=== PATIENT | female | born 1990 | race Caucasian/White ===

== ENCOUNTER → 2016-06-09 | Outpatient (REF) | payer OTHER ==
[~2016-06-09] MED LIST: ACET65TA PO; CELE20TA PO; HYDR-3363 PO; IBUP800T; THERGRAN; TRAZ50TA
[2016-06-09 18:52] LABS: FREE T4 0.95 NG/DL (0.76-1.46)
== END ==
LOC: M SFHCPLAZ 15:52
PROVIDERS: ATTEND Nurse Practitioner Family
DX: E03.9 Hypothyroidism, unspecified (principal); E55.9 Vitamin D deficiency, unspecified

== ENCOUNTER → 2017-03-04 | Outpatient (REF) | payer OTHER ==
[2017-03-04 16:32] LABS: ALBUMIN 3.7 GM/DL (3.2-5.2); ALBUMIN/GLOBULIN RATIO 1.09 (1.00-1.93); ALKALINE PHOSPHATASE 69 U/L (45-117); ALT/SGPT 26 U/L (12-78); ANION GAP 6 MEQ/L (8-16); AST/SGOT 14 U/L (15-37); BILIRUBIN,TOTAL 0.2 MG/DL (0.2-1.0); BLOOD UREA NITROGEN 11 MG/DL (7-18); CALCIUM LEVEL 9.1 MG/DL (8.5-10.1); CARBON DIOXIDE LEVEL 28 MEQ/L (21-32); CHLORIDE LEVEL 104 MEQ/L (98-107); CREATININE FOR GFR 0.71 MG/DL (0.55-1.02); FREE T4 0.93 NG/DL (0.76-1.46); GLOMERULAR FILTRATION RATE > 60.0 (>60); GLUCOSE, FASTING 85 MG/DL (70-105); SODIUM LEVEL 138 MEQ/L (136-145); TOTAL PROTEIN 7.1 GM/DL (6.4-8.2)
== END ==
LOC: M SFHCPLAZ 13:25
PROVIDERS: ATTEND Nurse Practitioner Family
DX: K21.9 Gastro-esophageal reflux disease without esophagitis (principal); E03.9 Hypothyroidism, unspecified; E55.9 Vitamin D deficiency, unspecified

== ENCOUNTER → 2017-09-16 | Outpatient (REF) | payer OTHER ==
[2017-09-16 13:59] LABS: TOTAL 25(OH) VITAMIN D 33.8 NG/ML (30.0-100.0)
[2017-09-16 14:17] LABS: FREE T4 0.99 NG/DL (0.76-1.46)
== END ==
LOC: M SFHCPLAZ 11:05
DX: E03.9 Hypothyroidism, unspecified (principal); E55.9 Vitamin D deficiency, unspecified

== ENCOUNTER → 2017-09-16 | Outpatient (REF) | payer OTHER ==
[2017-09-18 10:12] LABS: LAMOTRIGINE (LAMICTAL) 8.5 ug/mL (2.0-20.0)
== END ==
LOC: M LAB REF 13:22
DX: Z51.81 Encounter for therapeutic drug level monitoring (principal); Z79.891 Long term (current) use of opiate analgesic

== ENCOUNTER 2018-03-07 18:13 | Emergency (ER) | payer OTHER ==
[2018-03-07] MEDS: diazePAM 5 MG TAB PO (21:30)
[2018-03-07] MEDS: NAPROXEN 250 MG TAB PO (21:30)
== END 2018-03-07 21:47 | disposition home or self-care (01) ==
LOC: M ED 18:13
DX: M54.5 Low back pain (principal); F41.9 Anxiety disorder, unspecified; F33.9 Major depressive disorder, recurrent, unspecified; Z79.899 Other long term (current) drug therapy; F17.210 Nicotine dependence, cigarettes, uncomplicated
CPT/HCPCS: 99283

== ENCOUNTER → 2020-07-02 | Outpatient (REF) | payer OTHER ==
[~2020-07-02] MED LIST changes: +CLON0.5T2 PO; +LAMO200T3 PO; +NAPR-837 PO; +PRAZ1CAP PO; +VALI5TAB PO; +VITA50005
== END ==
LOC: M LAB REF 16:15
PROVIDERS: ATTEND Podiatrist Foot & Ankle Surgery
DX: M85.671 Other cyst of bone, right ankle and foot (principal)

== ENCOUNTER → 2022-06-18 | Outpatient (REF) | payer OTHER ==
[2022-06-18 23:10] LABS: GC DNA AMPLIFICATION NEGATIVE (NEGATIVE)
== END ==
LOC: M LAB REF 21:20
PROVIDERS: ATTEND Physician Assistant
DX: Z11.3 Encounter for screening for infections with a predominantly sexual mode of transmission (principal)

== ENCOUNTER 2023-03-07 05:40 | Emergency (ER) | payer OTHER, SELFPAY ==
[~2023-03-07] VITALS: Ht 175.3 cm; Wt 79.5 kg
[2023-03-07 06:26] LABS: BASO % 0.2 % (0.0-1.0); EOS % 0.1 % (0.0-3.0); HEMATOCRIT 36.3 % (36.0-47.0); HEMOGLOBIN 10.7 g/dl (12.0-15.5); LYMPH # 1.4 10^3/uL (1.5-5.0); LYMPH % 14.4 % (24.0-44.0); MEAN CORPUSCULAR HGB CONC 29.5 g/dl (32.0-36.5); MEAN CORPUSCULAR VOLUME 71.2 fl (80.0-96.0); MONO # 0.4 10^3/uL (0.0-0.8); MONO % 3.8 % (2.0-8.0); NEUTROPHILS # 8.1 10^3/uL (1.5-8.5); NEUTROPHILS % 81.2 % (36.0-66.0); PLATELET COUNT, AUTOMATED 456 10^3/uL (150-450)
[2023-03-07 06:53] LABS: LIPASE 37 U/L (12-53)
[2023-03-07 06:55] LABS: ALBUMIN 3.9 G/DL (3.2-5.2); ALKALINE PHOSPHATASE 58 U/L (46-116); ALT/SGPT 17 U/L (7.0-40); AST/SGOT 17 U/L (<34); BILIRUBIN,DIRECT 0.2 MG/DL (<0.4); BILIRUBIN,TOTAL 0.5 MG/DL (0.3-1.2); BLOOD UREA NITROGEN 11 MG/DL (9-23); CALCIUM LEVEL 9.2 MG/DL (8.5-10.1); CARBON DIOXIDE LEVEL 27 MMOL/L (20-31); CHLORIDE LEVEL 104 MMOL/L (98-107); CREATININE FOR GFR 0.49 MG/DL (0.55-1.30); GLOMERULAR FILTRATION RATE > 60.0 (>60); GLUCOSE, FASTING 99 MG/DL (60-100); POTASSIUM SERUM 4.1 MMOL/L (3.5-5.1); SODIUM LEVEL 139 MMOL/L (136-145); TOTAL PROTEIN 7.8 G/DL (5.7-8.2)
[2023-03-07] MEDS ORDERED: NS 1,000 ML IV ONE (08:00)
[2023-03-07] MEDS ORDERED: ONDANSETRON 4MG 2ML VIAL IV ONE (08:00)
[2023-03-07] MEDS ORDERED: ISOVUE-370 76% 100ML VIAL As Ordered ONE (08:17)
[2023-03-07 10:10] LABS: BARBITURATES URINE NEGATIVE (NEGATIVE); CANNABINOIDS URINE NEGATIVE (NEGATIVE); COCAINE METABOLITE URINE NEGATIVE (NEGATIVE); METHADONE URINE NEGATIVE (NEGATIVE); OPIATES URINE NEGATIVE (NEGATIVE); PHENCYCLIDINE URINE NEGATIVE (NEGATIVE)
[2023-03-07 10:13] LABS: AMPHETAMINES LEVEL URINE POSITIVE (NEGATIVE); BENZODIAZEPINES URINE POSITIVE (NEGATIVE)
[2023-03-07 11:21] VITALS: BP 167/79; TEMP 98.6; O2SAT 99
[2023-03-07] MEDS ORDERED: GABA-1171 PO (11:35)
[2023-03-07] MEDS ORDERED: ONDA4TAB6 PO (11:35)
== END 2023-03-07 11:57 | disposition home or self-care (01) ==
LOC: M ED 05:40
DX: R11.2 Nausea with vomiting, unspecified (principal); F19.230 Other psychoactive substance dependence with withdrawal, uncomplicated; R00.1 Bradycardia, unspecified; F17.200 Nicotine dependence, unspecified, uncomplicated; Z79.83 Long term (current) use of bisphosphonates; Z79.891 Long term (current) use of opiate analgesic
CPT/HCPCS: 74177; 80048; 80076; 80307; 83690; 84702; 85025; 87486; 87581; 87633; 87798; 93005; 96361; 96374; 99284; J2405; Q9967

== ENCOUNTER 2023-07-19 18:25 | Emergency (ER) | payer MEDICAID, SELFPAY ==
[~2023-07-19] VITALS: Ht 172.7 cm; Wt 87.4 kg
[~2023-07-19 18:25] MED LIST changes: +GABA-1171 PO; +ONDA4TAB6 PO
[2023-07-19 18:27] VITALS: BP 162/89; TEMP 98.5; O2SAT 96
== END 2023-07-19 18:40 | disposition left against medical advice (07) ==
LOC: M ED 18:25
DX: Z53.21 Procedure and treatment not carried out due to patient leaving prior to being seen by health care provider (principal)

== ENCOUNTER → 2023-08-12 | Outpatient (REF) | payer MEDICAID, OTHER | LOC: M LAB REF 16:12 | PROVIDERS: ATTEND Physician Assistant | DX: L98.8 Other specified disorders of the skin and subcutaneous tissue (principal) ==

== ENCOUNTER 2024-09-12 17:49 | Observation (INO) | payer OTHER ==
[~2024-09-12] VITALS: Ht 172.7 cm; Wt 98.8 kg
[~2024-09-12 17:49] MED LIST changes: +ONDA-282 PO; -ONDA4TAB6 PO
[2024-09-12 23:38] LABS: BASO % 0.4 % (0.0-1.0); EOS # 0.1 10^3/uL (0.0-0.5); EOS % 1.5 % (0.0-3.0); HEMATOCRIT 23.6 % (36.0-47.0); LYMPH # 2.1 10^3/uL (1.5-5.0); LYMPH % 28.4 % (24.0-44.0); MEAN CORPUSCULAR HEMOGLOBIN 18.9 pg (27.0-33.0); MEAN CORPUSCULAR HGB CONC 27.5 g/dl (32.0-36.5); MEAN CORPUSCULAR VOLUME 68.6 fl (80.0-96.0); MONO # 0.5 10^3/uL (0.0-0.8); MONO % 6.2 % (2.0-8.0); NEUTROPHILS # 4.6 10^3/uL (1.5-8.5); NEUTROPHILS % 63.4 % (36.0-66.0); PLATELET COUNT, AUTOMATED 344 10^3/uL (150-450); RED BLOOD COUNT 3.44 10^6/uL (4.00-5.40); WHITE BLOOD COUNT 7.3 10^3/uL (4.0-10.0)
[2024-09-12 23:46] LABS: HEMOGLOBIN 6.5 g/dl (12.0-15.5)
[2024-09-12 23:50] LABS: LIPASE 34 U/L (12-53)
[2024-09-12 23:52] LABS: CPK CREATINE PHOSPHOKINASE 70 U/L (34-145)
[2024-09-12 23:53] LABS: ALBUMIN 3.6 G/DL (3.2-5.2); ALKALINE PHOSPHATASE 49 U/L (35-104); ALT/SGPT 21 U/L (7.0-40); AST/SGOT 20 U/L (<34); BILIRUBIN,DIRECT < 0.1 MG/DL (<0.4); BILIRUBIN,TOTAL 0.2 MG/DL (0.3-1.2); BLOOD UREA NITROGEN 17 MG/DL (9-23); CALCIUM LEVEL 8.7 MG/DL (8.5-10.1); CARBON DIOXIDE LEVEL 26 MMOL/L (20-31); CHLORIDE LEVEL 104 MMOL/L (98-107); CREATININE FOR GFR 0.59 MG/DL (0.55-1.30); GLOMERULAR FILTRATION RATE > 90.0 (>60); GLUCOSE, FASTING 86 MG/DL (60-100); POTASSIUM SERUM 3.8 MMOL/L (3.5-5.1); SODIUM LEVEL 138 MMOL/L (136-145); TOTAL PROTEIN 6.9 G/DL (5.7-8.2)
[2024-09-12 23:57] LABS: FREE T4 0.99 NG/DL (0.89-1.76); THYROID STIMULATING HORMONE 1.595 uIU/ML (0.55-4.78)
[2024-09-12 23:59] LABS: CK-MB VALUE MASS < 1.0 NG/ML (<3.6); MB/CK RELATIVE INDEX 1.42 (< OR =4)
[2024-09-13] VITALS (18 sets, daily range): BP systolic 120–180; BP diastolic 65–95; TEMP 96.9–98.8; O2SAT 97–100
[2024-09-13] MEDS: hydroCHLOROthiazide 12.5 MG CAPSULE PO ONE (04:43)
[2024-09-13] MEDS ORDERED: HOME MED LIST COMPLETE! XX SCH (08:10)
[2024-09-13 08:45] LABS: HEMATOCRIT 30.5 % (36.0-47.0); MEAN CORPUSCULAR HEMOGLOBIN 21.4 pg (27.0-33.0); MEAN CORPUSCULAR HGB CONC 29.8 g/dl (32.0-36.5); MEAN CORPUSCULAR VOLUME 71.6 fl (80.0-96.0); PLATELET COUNT, AUTOMATED 331 10^3/uL (150-450); RED BLOOD COUNT 4.26 10^6/uL (4.00-5.40); WHITE BLOOD COUNT 5.4 10^3/uL (4.0-10.0)
[2024-09-13 08:52] LABS: IRON (FE) 350 UG/DL (50-170); PERCENT SATURATION 78.8 % (13.2-45.0); TOTAL IRON BINDING CAPACITY 444 UG/DL (250-425)
[2024-09-13 08:54] LABS: FERRITIN 1.2 NG/ML (7.3-270.7); FOLATE > 24.00 NG/ML (>5.4); VITAMIN B12 LEVEL 1090 PG/ML (211-911)
[2024-09-13 08:55] LABS: ALBUMIN 3.4 G/DL (3.2-5.2); ALKALINE PHOSPHATASE 50 U/L (35-104); ALT/SGPT 21 U/L (7.0-40); AST/SGOT 28 U/L (<34); BILIRUBIN,TOTAL 1.4 MG/DL (0.3-1.2); BLOOD UREA NITROGEN 15 MG/DL (9-23); CALCIUM LEVEL 8.8 MG/DL (8.5-10.1); CARBON DIOXIDE LEVEL 26 MMOL/L (20-31); CHLORIDE LEVEL 105 MMOL/L (98-107); CREATININE FOR GFR 0.56 MG/DL (0.55-1.30); GLOMERULAR FILTRATION RATE > 90.0 (>60); GLUCOSE, FASTING 118 MG/DL (60-100); POTASSIUM SERUM 4.4 MMOL/L (3.5-5.1); SODIUM LEVEL 139 MMOL/L (136-145); TOTAL PROTEIN 6.7 G/DL (5.7-8.2)
[2024-09-13 08:56] LABS: HEMOGLOBIN 9.1 g/dl (12.0-15.5)
[2024-09-13 09:16] LABS: IRON (FE) 9 UG/DL (50-170); TOTAL IRON BINDING CAPACITY 443 UG/DL (250-425)
[2024-09-13 09:18] LABS: FERRITIN < 0.9 NG/ML (7.3-270.7)
[2024-09-13] MEDS ORDERED: FERR325T3 PO (10:06)
[2024-09-13] MEDS: FERRIC CARBOXYMALTOSE INJ 750 MG, VIAL MATE ADAPTER 1 EACH in NS 100 ML IV ONE (11:55)
[2024-09-14] MEDS ORDERED: hydroCHLOROthiazide 12.5 MG CAPSULE PO SCH (09:00)
== END 2024-09-13 13:10 | disposition home or self-care (01) ==
LOC: M ED 17:49 → M ED INP 17:50
PROVIDERS: ADMIT Family Medicine; ATTEND Family Medicine
DX: D50.9 Iron deficiency anemia, unspecified (principal); R06.02 Shortness of breath; F32.A Depression, unspecified; F41.9 Anxiety disorder, unspecified; F31.9 Bipolar disorder, unspecified; G43.909 Migraine, unspecified, not intractable, without status migrainosus
CPT/HCPCS: 36415; 36430; 71045; 80048; 80053; 80076; 82550; 82553; 82607; 82728; 82746; 82784; 83550; 83690; 84439; 84443; 84484; 85025; 85027; 86231; 86255; 86258; 86364; 86850; 86900; 86901; 86920; 93005; 93041; 96374; 99285; J1439; P9016

== ENCOUNTER → 2024-09-28 | Outpatient (REF) | payer OTHER ==
[~2024-09-28] MED LIST changes: +FERR325T3 PO
[2024-09-28 18:51] LABS: THYROID STIMULATING HORMONE 1.725 uIU/ML (0.55-4.78); TOTAL 25(OH) VITAMIN D 24.2 NG/ML (20.0-100.0)
[2024-09-28 18:54] LABS: ALKALINE PHOSPHATASE 48 U/L (35-104); ALT/SGPT 24 U/L (7.0-40); AST/SGOT 15 U/L (<34); BILIRUBIN,TOTAL 0.2 MG/DL (0.3-1.2); BLOOD UREA NITROGEN 17 MG/DL (9-23); CALCIUM LEVEL 9.7 MG/DL (8.5-10.1); CARBON DIOXIDE LEVEL 28 MMOL/L (20-31); CHLORIDE LEVEL 107 MMOL/L (98-107); CHOLESTEROL LEVEL 165 MG/DL (<200); CHOLESTEROL RISK RATIO 2.88 (<5); CREATININE FOR GFR 0.78 MG/DL (0.55-1.30); GLOMERULAR FILTRATION RATE > 90.0 (>60); GLUCOSE, FASTING 76 MG/DL (60-100); HDL CHOLESTEROL 57.2 MG/DL (>40); LDL CHOLESTEROL 87.2 MG/DL (<100); NON-HDL-C 107.8 MG/DL; POTASSIUM SERUM 4.5 MMOL/L (3.5-5.1); SODIUM LEVEL 144 MMOL/L (136-145); TOTAL PROTEIN 7.4 G/DL (5.7-8.2); TRIGLYCERIDES LEVEL 103 MG/DL (<150)
[2024-09-28 19:13] LABS: HEMOGLOBIN A1c 4.7 % (4.0-6.0)
[2024-09-28 19:16] LABS: HIV 1&2 SCREEN NEGATIVE (NEGATIVE)
[2024-09-28 19:23] LABS: HEPATITIS C VIRUS ABY INDEX 0.04 INDEX (<0.8)
[2024-09-28 20:11] LABS: Trichomonas vaginalis (AMP) NOT DETECTED (NEGATIVE)
[2024-09-28 20:35] LABS: GC DNA AMPLIFICATION NEGATIVE (NEGATIVE)
== END ==
LOC: M LAB REF 17:14
PROVIDERS: ATTEND Physician Assistant
DX: E55.9 Vitamin D deficiency, unspecified (principal); E66.9 Obesity, unspecified; Z11.9 Encounter for screening for infectious and parasitic diseases, unspecified

== ENCOUNTER 2024-10-06 16:07 | Emergency (ER) | payer OTHER ==
[~2024-10-06] VITALS: Ht 170.2 cm; Wt 86.3 kg
[2024-10-06 18:56] VITALS: TEMP 98.5; O2SAT 100
[2024-10-06 18:59] VITALS: BP 182/106
== END 2024-10-06 19:50 | disposition left against medical advice (07) ==
LOC: M ED 16:07
DX: Z53.21 Procedure and treatment not carried out due to patient leaving prior to being seen by health care provider (principal)